=== PATIENT | male | born 1930 | race Two or more races ===

== ENCOUNTER 2018-04-23 11:55 | Inpatient (IN) | payer MEDICARE, OTHER, SELFPAY ==
[~2018-04-23] VITALS: Ht 175.3 cm; Wt 82.8 kg
[~2018-04-23 11:55] MED LIST: ETOMIDATE 20 MG/10 ML ONE; VECURONIUM 10 MG ONE
--- NOTE | 2018-04-23 11:55 | NUR ---
PT BIB [facility] FOR INCREASING SOB SINCE THIS AM WITH 2 WEEK HX OF COUGH. PT HAS BEEN ON ANTIBIOTICS FOR LAST 1.5 WEEKS. ON [facility] ARRIVAL TO PT'S HOUSE, PT WAS TACHYPNIC SATING 84%ON RA WITH A RR IN THE HIGH 30'S. PT RECEIVED DUONEB AND ALBUTEROL WITH MINIMAL RELIEF. PT PLACED ON CPAP INSURANCE RISK ANALYST BY [facility]. ON ARRIVAL PT WAS TACHYPNIC AND HAD LABORED BREATHING. PT ON MONITOR AND EKG DONE. DR. WINTERS AT BEDSIDE.
[2018-04-23] MEDS ORDERED: MAGNESIUM SULFATE PMX 2GM/50ML 50 ML IVPB ONE (12:00)
[2018-04-23] MEDS ORDERED: SODIUM CHLORIDE FLUSH 10ML SYR IVF ONE (12:00)
[2018-04-23] MEDS ORDERED: methylPREDNISolone SOD SUCC 125 MG/2 ML IVP ONE (12:00)
[2018-04-23] MEDS ORDERED: methylPREDNISolone SOD SUCC 125 MG/2 ML ONE (12:12)
[2018-04-23] MEDS ORDERED: ALBUTEROL 0.5%, 20ML ONE (12:14)
[2018-04-23] MEDS ORDERED: METO-95 PO (12:20)
[2018-04-23] MEDS ORDERED: LOSA50TA14 PO (12:20)
[2018-04-23] MEDS ORDERED: LOVA20TA2 PO (12:20)
[2018-04-23] MEDS ORDERED: CLOP75TA PO (12:20)
[2018-04-23] MEDS ORDERED: AMLO10TA8 PO (12:20)
[2018-04-23] MEDS ORDERED: HYDR25TA6 PO (12:20)
--- NOTE | 2018-04-23 12:20 | NUR ---
DR. WINTERS AT BEDSIDE. FOR POSSIBLE INTUBATION. Addendum: 04/23/18 at 1224 by ALEGLISE PT WORK OF BREATHING HAS DECREASED WHILE ON CPAP AND HR IN THE 90'S FROM 130'S. INTUBATION BEING POSTPONED PER DR. WINTERS. REPORT TO CORINNA Shukla RN.
[2018-04-23] MEDS ORDERED: FINASTERIDE PO (12:21)
[2018-04-23] MEDS ORDERED: ALLOPURINOL PO (12:21)
[2018-04-23 12:23] LABS: BASOPHILS % (AUTO) 0 % (0-1); EOSINOPHILS # (AUTO) 0.01 x10^3/uL (0-0.4); EOSINOPHILS % (AUTO) 0 % (1-7); LYMPHOCYTES # (AUTO) 1.26 x10^3/uL (1-3.4); LYMPHOCYTES % (AUTO) 12 % (22-44); MD NO; MEAN CORPUSCULAR HEMOGLOBIN 28.9 pg (27.5-34.5); MEAN CORPUSCULAR HGB CONC 32.7 g/dL (33.2-36.2); MEAN CORPUSCULAR VOLUME 88.2 fL (81-97); MEAN PLATELET VOLUME 7.2 fL (7.4-10.4); MONOCYTES # (AUTO) 0.73 x10^3/uL (0.2-0.8); MONOCYTES % (AUTO) 7 % (2-9); NEUTROPHILS # (AUTO) 8.52 x10^3/uL (1.8-6.8); NEUTROPHILS % (AUTO) 81 % (42-75); PLATELET COUNT 285 x10^3/uL (130-400); RED BLOOD COUNT 5.14 x10^6/uL (4.38-5.82); RED CELL DISTRIBUTION WIDTH 13.1 % (9.4-14.8)
[2018-04-23] MEDS ORDERED: PLEASE ENTER ALLERGIES MC SCH (12:30)
[2018-04-23 12:35] LABS: ALBUMIN 4.1 g/dL (3.4-5.0); ANION GAP 6 mmol/L (5-15); CALCIUM 9.4 mg/dL (8.5-10.1); CHLORIDE 103 mmol/L (98-107)
[2018-04-23 12:39] LABS: CREATININE 1.14 mg/dL (0.7-1.3)
[2018-04-23 12:41] LABS: TROPONIN I < 0.015 ng/mL (0.000-0.045)
[2018-04-23] MEDS ORDERED: BISACODYL 10 MG SUPP PR PRN (14:30)
[2018-04-23] MEDS ORDERED: ONDANSETRON ODT 4 MG PO PRN (14:30)
[2018-04-23] MEDS ORDERED: ONDANSETRON 2MG/ML, 2ML IVPush PRN (14:30)
[2018-04-23] MEDS ORDERED: PROMETHAZINE 25 MG/ML, 1ML IM PRN (14:30)
[2018-04-23] MEDS ORDERED: HYDROcodone/APAP 5/325 TABLET PO PRN (14:30)
[2018-04-23] MEDS ORDERED: ACETAMINOPHEN 325 MG TABLET PO PRN (14:30)
[2018-04-23] MEDS ORDERED: morphine SULFATE 10 MG/ML, 1ML IVPush PRN (14:30)
[2018-04-23] MEDS ORDERED: POLYETHYLENE GLYCOL 17 GM PACKET PO PRN (14:30)
[2018-04-23] MEDS ORDERED: DOCUSATE 100 MG CAPSULE PO PRN (14:30)
[2018-04-23] MEDS ORDERED: LABETALOL 5MG/ML, 20ML IVPush PRN (14:30)
[2018-04-23] MEDS ORDERED: hydrALAzine 20 MG/ML, 1ML IVPush PRN (14:30)
--- NOTE | 2018-04-23 14:37 | NUR ---
Report from KORI Pinzon. Patient resting comfortably in [facility].
--- NOTE | 2018-04-23 15:03 | NUR ---
THROUGHPUT: CALLED [facility] D/T PT INSURANCE. SPOKE WITH PAT AT [facility] TRANSFER [place], PT DENIED.
[2018-04-23] MEDS: methylPREDNISolone SOD SUCC 125 MG/2 ML IVPush SCH ×2 (15:08→19:53)
--- NOTE | 2018-04-23 15:10 | NUR ---
Report called to KORI Aburto.
[2018-04-23 15:16] LABS: FREE T4 (FREE THYROXINE) 1.15 ng/dL (0.76-1.46); THYROID STIMULATING HORMONE 0.774 mIU/L (0.358-3.740)
[2018-04-23 15:32] VITALS: BP 146/84
[2018-04-23] MEDS: FAMOTIDINE 20 MG TABLET PO SCH ×2 (16:33→19:53)
[2018-04-23] MEDS: CETIRIZINE 10 MG TABLET PO SCH (16:33)
[2018-04-23] MEDS: SODIUM CHLORIDE 0.9% 1,000 ML IV SCH (16:33)
[2018-04-23] MEDS: DOXYCYCLINE 100 MG in DEXTROSE 5% 250 ML IV SCH (16:33)
[2018-04-23] MEDS: HEPARIN 5,000 UNITS/ML, 1ML SQ SCH (16:33)
[2018-04-23 18:35] LABS: MICROSCOPIC AUTO
[2018-04-23 18:37] LABS: CULTURE INDICATED? YES
[2018-04-23 18:45] VITALS: BP 114/73
[2018-04-23] MEDS ORDERED: LOVASTATIN 20 MG TABLET PO SCH (21:00)
[2018-04-24] MEDS: HEPARIN 5,000 UNITS/ML, 1ML SQ SCH ×2 (00:25→07:56)
[2018-04-24] MEDS: SODIUM CHLORIDE 0.9% 1,000 ML IV SCH (00:26)
[2018-04-24 01:22] VITALS: BP 136/86
[2018-04-24] MEDS ORDERED: ALBUTEROL/IPRATROPIUM 2.5MG/0.5MG, 3 ML NPPB PRN (02:00)
[2018-04-24] MEDS ORDERED: ALBUTEROL/IPRATROPIUM 2.5MG/0.5MG, 3 ML ONE ×2 (02:03→02:06)
[2018-04-24] MEDS: methylPREDNISolone SOD SUCC 125 MG/2 ML IVPush SCH ×2 (04:54→07:56)
[2018-04-24] MEDS: DOXYCYCLINE 100 MG in DEXTROSE 5% 250 ML IV SCH (04:54)
[2018-04-24 05:40] LABS: BASOPHILS # (AUTO) 0.01 x10^3/uL (0-0.1); BASOPHILS % (AUTO) 0 % (0-1); EOSINOPHILS % (AUTO) 0 % (1-7); LYMPHOCYTES # (AUTO) 0.72 x10^3/uL (1-3.4); LYMPHOCYTES % (AUTO) 9 % (22-44); MD NO; MEAN CORPUSCULAR HEMOGLOBIN 29.6 pg (27.5-34.5); MEAN CORPUSCULAR HGB CONC 33.4 g/dL (33.2-36.2); MEAN CORPUSCULAR VOLUME 88.6 fL (81-97); MEAN PLATELET VOLUME 7.3 fL (7.4-10.4); MONOCYTES # (AUTO) 0.27 x10^3/uL (0.2-0.8); MONOCYTES % (AUTO) 3 % (2-9); NEUTROPHILS # (AUTO) 6.84 x10^3/uL (1.8-6.8); NEUTROPHILS % (AUTO) 87 % (42-75); PLATELET COUNT 236 x10^3/uL (130-400); RED BLOOD COUNT 4.77 x10^6/uL (4.38-5.82); RED CELL DISTRIBUTION WIDTH 13.6 % (9.4-14.8)
[2018-04-24 05:51] LABS: CALCIUM 8.6 mg/dL (8.5-10.1); CHLORIDE 104 mmol/L (98-107)
[2018-04-24 05:57] LABS: ALANINE AMINOTRANSFERASE 30 U/L (12-78); ALBUMIN 3.6 g/dL (3.4-5.0); ALKALINE PHOSPHATASE 75 U/L (45-117); ANION GAP 9 mmol/L (5-15); BILIRUBIN,TOTAL 0.9 mg/dL (0.2-1.0); CHOL/HDL RATIO 2.2; CHOLESTEROL, TOTAL 140 mg/dL (140-239); CREATININE 1.04 mg/dL (0.7-1.3); HDL CHOL % 46 % (26-37); HDL CHOLESTEROL (DIRECT) 64 mg/dL (40-60); LDL CHOLESTEROL,CALCULATED 66 mg/dL (54-169); TOTAL PROTEIN 6.9 g/dL (6.4-8.2); TRIGLYCERIDES 51 mg/dL (50-200); VLDL CHOLESTEROL 10 mg/dL (0-25)
[2018-04-24 06:34] VITALS: BP 135/74
[2018-04-24] MEDS ORDERED: ALBUTEROL/IPRATROPIUM 2.5MG/0.5MG, 3 ML NPPB SCH (07:00)
[2018-04-24] MEDS: CETIRIZINE 10 MG TABLET PO SCH (07:44)
[2018-04-24] MEDS: FAMOTIDINE 20 MG TABLET PO SCH (07:46)
[2018-04-24] MEDS ORDERED: LOSARTAN 50MG TABLET PO SCH (09:00)
[2018-04-24] MEDS ORDERED: ALLOPURINOL 100 MG TABLET PO SCH (09:00)
[2018-04-24] MEDS ORDERED: METOPROLOL SUCCINATE 100 MG TAB.ER.24H PO SCH (09:00)
[2018-04-24] MEDS ORDERED: AMLODIPINE 10 MG TAB PO SCH (09:00)
[2018-04-24] MEDS ORDERED: HYDROCHLOROTHIAZIDE 25 MG TABLET PO SCH (09:00)
[2018-04-24] MEDS ORDERED: FINASTERIDE 5 MG TABLET PO SCH (09:00)
[2018-04-24] MEDS ORDERED: CLOPIDOGREL 75 MG TABLET PO SCH (09:00)
[2018-04-24 11:22] VITALS: BP 115/67
[2018-04-24] MEDS ORDERED: FAMO20TA7 PO (11:42)
[2018-04-24] MEDS ORDERED: DOXY100T10 PO (11:42)
[2018-04-24] MEDS ORDERED: PRED5TAB PO (11:42)
[2018-04-24] MEDS ORDERED: IPRA3AMP30 NPPB (11:42)
[2018-04-24] MEDS ORDERED: CETI10TA18 PO (11:42)
[2018-04-24] MEDS ORDERED: FLUT1DIS3 INH (11:42)
== END 2018-04-24 12:30 | disposition home or self-care (01) | DRG 189 ==
LOC: ED 14:37 → 4EST 15:26
PROVIDERS: ADMIT Internal Medicine; ATTEND Internal Medicine
PROC: 5A09357 Assistance with Respiratory Ventilation, Less than 24 Consecutive Hours, Continuous Positive Airway Pressure (ICD-10-PCS; principal; 2018-04-23)
DX: J96.01 Acute respiratory failure with hypoxia (principal); J45.901 Unspecified asthma with (acute) exacerbation; E78.5 Hyperlipidemia, unspecified; I10 Essential (primary) hypertension; J20.9 Acute bronchitis, unspecified; M1A.9XX0 Chronic gout, unspecified, without tophus (tophi); N40.0 Benign prostatic hyperplasia without lower urinary tract symptoms
CPT/HCPCS: 36415; 71045; 80048; 80053; 80061; 81001; 82040; 83036; 83605; 83735; 83880; 84439; 84443; 84484; 85025; 87040; 87086; 93005; 93306; 94640; 94660; 96365; 96366; 96375; 99291; G0378; J1644; J7060; J7620; J2930; J3475; J7030